=== PATIENT | female | born 1935 | race Caucasian/White ===

== ENCOUNTER 2019-12-12 12:15 | Outpatient (CLI) | payer MEDICARE, OTHER ==
[2019-12-12] MEDS ORDERED: AMLO-150 PO (12:44)
[2019-12-12 13:32] LABS: ANION GAP 9 mmol/L (5-15); CALCIUM 9.1 mg/dL (8.5-10.1); CHLORIDE 104 mmol/L (98-107); CREATININE 0.75 mg/dL (0.55-1.02)
[2019-12-12 13:34] LABS: BASOPHILS # (AUTO) 0.04 x10^3/uL (0-0.1); BASOPHILS % (AUTO) 1 % (0-1); EOSINOPHILS # (AUTO) 0.11 x10^3/uL (0-0.4); EOSINOPHILS % (AUTO) 2 % (1-7); LYMPHOCYTES # (AUTO) 1.16 x10^3/uL (1-3.4); LYMPHOCYTES % (AUTO) 17 % (22-44); MD NO; MEAN CORPUSCULAR HEMOGLOBIN 32.2 pg (27.0-34.8); MEAN CORPUSCULAR HGB CONC 33.4 g/dL (32.4-35.8); MEAN CORPUSCULAR VOLUME 96.5 fL (80-100); MEAN PLATELET VOLUME 9.7 fL (7.4-10.4); MONOCYTES # (AUTO) 0.51 x10^3/uL (0.2-0.8); MONOCYTES % (AUTO) 8 % (2-9); NEUTROPHILS # (AUTO) 5.01 x10^3/uL (1.8-6.8); NEUTROPHILS % (AUTO) 73 % (42-75); PLATELET COUNT 215 x10^3/uL (130-400); RED BLOOD COUNT 4.52 x10^6/uL (3.82-5.3); RED CELL DISTRIBUTION WIDTH 13.1 % (9.6-15.2)
== END 2019-12-12 23:59 | disposition home or self-care (01) ==
LOC: STAR 12:15
PROVIDERS: ATTEND Orthopaedic Surgery
DX: Z01.818 Encounter for other preprocedural examination (principal); M19.011 Primary osteoarthritis, right shoulder; M25.511 Pain in right shoulder; I51.7 Cardiomegaly
CPT/HCPCS: 36415; 80048; 85025; 87081; 93005

== ENCOUNTER 2019-12-16 07:41 | Inpatient (IN) | payer MEDICARE, OTHER ==
[~2019-12-16] VITALS: Ht 172.7 cm; Wt 84.7 kg
[~2019-12-16 07:41] MED LIST: AMLO-150 PO; EPINEPHRINE 1 MG/ML, 1ML ONE; KETOROLAC 60 MG/2 ML ONE; ROPIvacaine/PF 0.2%, 20 ML ONE; SODIUM CHLORIDE 0.9% 50 ML ONE; TRANEXAMIC ACID 100 MG/ML, 10ML ONE; VANCOMYCIN 1,000 MG ONE; morphine SULFATE/PF 1 MG/ML, 10ML ONE
[2019-12-16] MEDS ORDERED: FENTANYL PF 250 MCG/5ML ONE (07:45)
[2019-12-16] MEDS ORDERED: ROPIvacaine/PF 0.2%, 20 ML ONE ×2 (07:46→07:49)
[2019-12-16] MEDS ORDERED: NEOSTIGMINE 1 MG/ML, 10ML ONE (07:49)
[2019-12-16] MEDS ORDERED: ROCURONIUM 10MG/ML,5ML ONE (07:49)
[2019-12-16] MEDS ORDERED: PROPOFOL 10 MG/ML, 20ML ONE (07:49)
[2019-12-16] MEDS ORDERED: DEXAMETHASONE 4 MG/ML, 1ML ONE (07:49)
[2019-12-16] MEDS ORDERED: CEFAZOLIN 1,000 MG ONE (07:49)
[2019-12-16] MEDS ORDERED: METHYLENE BLUE 10 MG/ML 10ML ONE (07:49)
[2019-12-16] MEDS ORDERED: ONDANSETRON 2MG/ML, 2ML ONE (07:49)
[2019-12-16] MEDS ORDERED: GLYCOPYRROLATE 0.2MG/1ML, 5ML ONE (07:49)
[2019-12-16] MEDS ORDERED: LACTATED RINGERS 1,000 ML IV SCH (08:09)
[2019-12-16 08:12] VITALS: BP 167/69
[2019-12-16] MEDS ORDERED: CHLORHEXIDINE 15 ML UDC MM ONE (08:30)
[2019-12-16] MEDS ORDERED: GABAPENTIN 300 MG CAPSULE PO ONE (08:30)
[2019-12-16] MEDS ORDERED: ACETAMINOPHEN 500 MG TABLET PO ONE (08:30)
[2019-12-16] MEDS ORDERED: ACETAMINOPHEN 500 MG TABLET ONE (08:33)
[2019-12-16] MEDS ORDERED: CHLORHEXIDINE 15 ML UDC ONE (08:34)
[2019-12-16] MEDS ORDERED: GABAPENTIN 300 MG CAPSULE ONE (08:34)
[2019-12-16] MEDS ORDERED: morphine SULFATE 10 MG/ML, 1ML IVPush PRN (09:30)
[2019-12-16] MEDS ORDERED: LABETALOL 5MG/ML, 20ML IV PRN (09:30)
[2019-12-16] MEDS ORDERED: HYDROmorphone 1 MG/ML, 1ML INJ IVPush PRN (09:30)
[2019-12-16] MEDS ORDERED: HALOPERIDOL 5 MG/ML IV PRN (09:30)
[2019-12-16] MEDS ORDERED: hydrALAzine 20 MG/ML, 1ML IV PRN (09:30)
[2019-12-16] MEDS ORDERED: PROMETHAZINE 25 MG/ML, 1ML IVPush PRN (09:30)
[2019-12-16] MEDS ORDERED: MEPERIDINE/PF 25MG/0.5ML IVPush PRN (09:30)
[2019-12-16] MEDS ORDERED: OXYcodone 5 MG/5 ML ORAL.SOL UDC PO PRN (09:30)
[2019-12-16] MEDS ORDERED: CLINDAMYCIN 150 MG/ML, 6ML ONE (09:54)
[2019-12-16] MEDS ORDERED: SUGAMMADEX 200 MG/2 ML IVPush ONE (10:11)
[2019-12-16] MEDS ORDERED: OXYcodone 5 MG/5 ML ORAL.SOL UDC ONE (11:47)
[2019-12-16] MEDS ORDERED: FENTANYL PF 100 MCG/2ML ONE ×2 (11:47→12:15)
[2019-12-16] MEDS: FENTANYL PF 100 MCG/2ML IV PRN ×5 (11:50→12:24)
[2019-12-16 13:10] VITALS: BP 120/53
[2019-12-16] MEDS ORDERED: ONDANSETRON 2MG/ML, 2ML IV PRN (14:00)
[2019-12-16] MEDS ORDERED: HYDROcodone/APAP 7.5-325MG/15ML UDC PO PRN (14:00)
[2019-12-16] MEDS ORDERED: POTASSIUM CHLORIDE 10 MEQ in D5%-0.45% NACL 1,000 ML IV SCH (14:00)
[2019-12-16] MEDS ORDERED: AMLO5TAB10 PO (16:55)
[2019-12-16] MEDS ORDERED: CLINDAMYCIN PMX 900MG/50ML 50 ML IVPB SCH (18:00)
[2019-12-16] MEDS ORDERED: CEFAZOLIN PMX 1GM/50ML 50 ML IVPB SCH (18:00)
[2019-12-17] MEDS ORDERED: AMLODIPINE 5 MG TABLET PO SCH (09:00)
== END 2019-12-16 17:30 | disposition home or self-care (01) | DRG 483 ==
LOC: ORIP 07:41 → 4NE 12:55
PROVIDERS: ADMIT Orthopaedic Surgery; ATTEND Orthopaedic Surgery
PROC: 0LS30ZZ Reposition Right Upper Arm Tendon, Open Approach (ICD-10-PCS; 2019-12-16)
PROC: 0RRJ00Z Replacement of Right Shoulder Joint with Reverse Ball and Socket Synthetic Substitute, Open Approach (ICD-10-PCS; principal; 2019-12-16 10:00)
DX: M19.011 Primary osteoarthritis, right shoulder (principal)
CPT/HCPCS: C1713; C1776; G0378; J0171; J0690; J1100; J1885; J2274; J2405; J2704; J2710; J2795; J3010; J3370; J3480; J7120; Q9968; U0001-CS